=== PATIENT | male | born 1945 | race Caucasian/White ===

== ENCOUNTER 2022-07-31 21:42 | Observation (INO) ==
[2022-07-31] MEDS ORDERED: *HR* HYDROcodone/Acet 5/325 mg TABLET PO PRN (23:47)
[2022-07-31] MEDS ORDERED: Melatonin 3 MG TABLET PO PRN (23:47)
[2022-07-31] MEDS ORDERED: Ondansetron 4 MG/2 ML VIAL IVP PRN (23:47)
[2022-07-31] MEDS ORDERED: Naloxone 0.4 MG/ML INJ IVP PRN (23:47)
[2022-08-01] MEDS: Acetaminophen 325 MG TABLET PO PRN ×3 (01:42→18:02)
[2022-08-01] MEDS: Ipratropium/Albuterol Neb 3 ML IH SCH ×2 (04:15→09:35)
[2022-08-01] MEDS ORDERED: Saline Nasal Spray 44 ML BOTTLE NS PRN (06:04)
[2022-08-01] MEDS ORDERED: Saliva Stimulant 44.3ml BOTTLE PO PRN (06:04)
[2022-08-01] MEDS ORDERED: *HR* Dextrose 50 % in Water (Syg) 50 ML SYRINGE IVP PRN (06:07)
[2022-08-01] MEDS ORDERED: Dextrose Gel 15 GM/37.5 ML TUBE PO PRN ×2 (06:07)
[2022-08-01] MEDS ORDERED: D5% in Water 1,000 ML IVC PRN (06:07)
[2022-08-01 07:32] LABS: Basophils % 0.3 %; Eosinophils # 0.6 K/mcL (0.0-0.6); Eosinophils % 6.7 %; Hematocrit 42.5 % (37.5-50.1); Hemoglobin 13.5 g/dL (12.9-16.9); Immature Granulocytes % 0.2 % (0-4); Lymphocytes # 1.4 K/mcL (0.6-4.6); Lymphocytes % 15.3 %; Mean Corpuscular HGB Conc 31.8 g/dL (31.6-35.5); Mean Corpuscular Hemoglobin 29.7 pg (28.0-33.3); Mean Corpuscular Volume 93.4 fL (83.0-100.0); Mean Platelet Volume 10.7 fL (9.4-12.4); Monocytes # 0.8 K/mcL (0.0-1.3); Monocytes % 8.9 %; Neutrophils # 6.2 K/mcL (1.6-8.9); Platelet Count 212 K/mcL (140-400); Red Blood Count 4.55 M/mcL (4.19-5.50); Red Cell Distribution Width 13.2 % (11.5-14.5); Segmented Neutrophils % 68.6 %
[2022-08-01] MEDS: Insulin LISPRO 300 UNITS/3 ML VIAL SUBQ SCH ×3 (07:46→16:25)
[2022-08-01 07:52] LABS: INR 1.3
[2022-08-01 07:54] LABS: Activated Partial Thrombo Time 30.3 Seconds (26.0-36.0)
[2022-08-01] MEDS: Azithromycin 500 MG in 0.9 % Sodium Chloride 250 ML IVPB SCH (08:00)
[2022-08-01 08:16] LABS: Alanine Aminotransferase 8 Units/L (7-52); Albumin 3.3 g/dL (3.5-5.7); Albumin/Globulin Ratio 1.1 (1.1-2.2); Alkaline Phosphatase 66 Units/L (34-104); Aspartate Amino Transferase 13 Units/L (13-39); BUN/Creatinine Ratio 24 (6-26); Bilirubin,Total 0.4 mg/dL (0.3-1.0); Blood Urea Nitrogen 17 mg/dL (8-23); Calcium 8.9 mg/dL (8.6-10.3); Carbon Dioxide 40 mEq/L (23-29); Chloride 94 mEq/L (98-107); Globulin 2.9 g/dL (2.4-3.5); Glucose 90 mg/dL (70-105); Magnesium 1.8 mg/dL (1.6-2.6); Osmolality,Calculated 291 (280-300); Potassium 3.8 mEq/L (3.5-5.1); Sodium 140 mEq/L (136-145); Total Protein 6.2 g/dL (6.4-8.9)
[2022-08-01] MEDS ORDERED: NON-FORMULARY MEDICATION 1 EACH EACH (Biotin 1 MG Tablet) PO SCH (09:00)
[2022-08-01] MEDS ORDERED: predniSONE 20 MG TABLET PO SCH (09:00)
[2022-08-01] MEDS ORDERED: NON-FORMULARY MEDICATION 1 EACH EACH (Cyanocobalamin (Vitamin B-12) [Vitamin B-12] 100 MCG PO SCH (09:00)
[2022-08-01] MEDS ORDERED: predniSONE 10 MG TABLET PO SCH (09:00)
[2022-08-01] MEDS: Budesonide/Formoterol 160/4.5 1 PUFF INH IH SCH ×2 (09:35→21:12)
[2022-08-01] MEDS: Lactobacillus 1 EACH CAP.SPRINK PO SCH ×2 (10:12→20:48)
[2022-08-01] MEDS: Ascorbic Acid 500 MG TABLET PO SCH (10:12)
[2022-08-01] MEDS: Multivit/Ca/Min/Fe/FA 1 TAB TABLET PO SCH (10:12)
[2022-08-01] MEDS: Artificial Tears SOLN 15 ML BOTTLE BOTH EYES SCH ×2 (10:12→20:56)
[2022-08-01] MEDS: cefTRIAXone 1,000 MG in 0.9 % Sodium Chloride Mini Bag 100 ML IVPB SCH (10:13)
[2022-08-01] MEDS: Chlorhexidine Rinse 15 ML MOUTHWASH MM SCH (10:25)
[2022-08-01] MEDS: Nystatin POWDER 30 GM BOTTLE TP SCH ×2 (10:53→20:55)
[2022-08-01] MEDS: Metoprolol XL (24 HR) Succ 25 MG TAB.ER.24H PO SCH (10:53)
[2022-08-01] MEDS: Gabapentin 100 MG CAPSULE PO SCH ×3 (10:53→20:48)
[2022-08-01] MEDS ORDERED: NON-FORMULARY MEDICATION 1 EACH EACH (Ipratropium/Albuterol Sulfate 120 PUFF Inhaler) IH SCH (12:00)
[2022-08-01] MEDS: hydroCHLOROthiazide 25 MG TABLET PO SCH (20:48)
[2022-08-02] MEDS: *HR* Enoxaparin 40 MG/0.4 ML SYRINGE SQ SCH (05:48)
[2022-08-02] MEDS: Chlorhexidine Rinse 15 ML MOUTHWASH MM SCH ×3 (05:48→19:56)
[2022-08-02] MEDS: Acetaminophen 325 MG TABLET PO PRN ×2 (05:58→17:16)
[2022-08-02] MEDS: Insulin LISPRO 300 UNITS/3 ML VIAL SUBQ SCH ×3 (07:31→16:31)
[2022-08-02] MEDS: Azithromycin 500 MG in 0.9 % Sodium Chloride 250 ML IVPB SCH (07:33)
[2022-08-02] MEDS: Cholecalciferol (D-3) 1,000 UNIT (25MCG) TABLET PO SCH (08:58)
[2022-08-02] MEDS: Metoprolol XL (24 HR) Succ 25 MG TAB.ER.24H PO SCH (08:58)
[2022-08-02] MEDS: Ascorbic Acid 500 MG TABLET PO SCH (08:58)
[2022-08-02] MEDS: Gabapentin 100 MG CAPSULE PO SCH ×3 (08:58→19:54)
[2022-08-02] MEDS: Lactobacillus 1 EACH CAP.SPRINK PO SCH ×2 (08:58→19:54)
[2022-08-02] MEDS: Multivit/Ca/Min/Fe/FA 1 TAB TABLET PO SCH (08:59)
[2022-08-02] MEDS: cefTRIAXone 1,000 MG in 0.9 % Sodium Chloride Mini Bag 100 ML IVPB SCH (09:00)
[2022-08-02] MEDS: Nystatin POWDER 30 GM BOTTLE TP SCH ×2 (09:00→23:57)
[2022-08-02] MEDS: BETA CAROTENE PO SCH (09:11)
[2022-08-02] MEDS: Budesonide/Formoterol 160/4.5 1 PUFF INH IH SCH ×2 (09:43→21:49)
[2022-08-02] MEDS: Artificial Tears SOLN 15 ML BOTTLE BOTH EYES SCH ×2 (13:41→19:54)
[2022-08-02] MEDS: hydroCHLOROthiazide 25 MG TABLET PO SCH (19:54)
[2022-08-02] MEDS: Melatonin 3 MG TABLET PO PRN (23:16)
[2022-08-03] MEDS: *HR* Enoxaparin 40 MG/0.4 ML SYRINGE SQ SCH (06:09)
[2022-08-03] MEDS: Gabapentin 100 MG CAPSULE PO SCH ×3 (08:40→20:44)
[2022-08-03] MEDS: polyethylene glycoL 3350 17 GM POWD.PACK PO SCH (08:40)
[2022-08-03] MEDS: Artificial Tears SOLN 15 ML BOTTLE BOTH EYES SCH ×2 (08:40→20:44)
[2022-08-03] MEDS: Ascorbic Acid 500 MG TABLET PO SCH (08:40)
[2022-08-03] MEDS: Multivit/Ca/Min/Fe/FA 1 TAB TABLET PO SCH (08:40)
[2022-08-03] MEDS: Chlorhexidine Rinse 15 ML MOUTHWASH MM SCH ×2 (08:40→20:44)
[2022-08-03] MEDS: Metoprolol XL (24 HR) Succ 25 MG TAB.ER.24H PO SCH (08:41)
[2022-08-03] MEDS: Cholecalciferol (D-3) 1,000 UNIT (25MCG) TABLET PO SCH (08:41)
[2022-08-03] MEDS: Nystatin POWDER 30 GM BOTTLE TP SCH ×2 (08:41→20:45)
[2022-08-03] MEDS: Lactobacillus 1 EACH CAP.SPRINK PO SCH ×2 (08:41→20:44)
[2022-08-03] MEDS: BETA CAROTENE PO SCH (08:41)
[2022-08-03] MEDS: Insulin LISPRO 300 UNITS/3 ML VIAL SUBQ SCH ×3 (08:42→16:29)
[2022-08-03] MEDS: Budesonide/Formoterol 160/4.5 1 PUFF INH IH SCH ×2 (09:46→21:11)
[2022-08-03] MEDS ORDERED: Sennosides/Docusate Sodium TABLET PO PRN (16:36)
[2022-08-03] MEDS ORDERED: polyethylene glycoL 3350 17 GM POWD.PACK PO ONE (16:37)
[2022-08-03] MEDS: Ipratropium/Albuterol Neb 3 ML IH PRN (18:01)
[2022-08-03] MEDS ORDERED: *HR* LORazepam 0.5 MG TABLET PO ONE (19:33)
[2022-08-03] MEDS: hydroCHLOROthiazide 25 MG TABLET PO SCH (20:44)
[2022-08-03] MEDS: Acetaminophen 325 MG TABLET PO PRN (21:13)
[2022-08-03] MEDS: Melatonin 3 MG TABLET PO PRN (22:58)
[2022-08-04] MEDS: *HR* Enoxaparin 40 MG/0.4 ML SYRINGE SQ SCH (04:23)
[2022-08-04] MEDS: Acetaminophen 325 MG TABLET PO PRN ×3 (04:23→20:26)
[2022-08-04] MEDS: Ipratropium/Albuterol Neb 3 ML IH PRN ×2 (04:57→16:27)
[2022-08-04 07:08] LABS: Basophils % 0.4 %; Eosinophils # 0.6 K/mcL (0.0-0.6); Eosinophils % 7.7 %; Hematocrit 38.8 % (37.5-50.1); Hemoglobin 12.2 g/dL (12.9-16.9); Immature Granulocytes % 0.4 % (0-4); Lymphocytes # 1.2 K/mcL (0.6-4.6); Lymphocytes % 13.9 %; Mean Corpuscular HGB Conc 31.4 g/dL (31.6-35.5); Mean Corpuscular Hemoglobin 29.6 pg (28.0-33.3); Mean Corpuscular Volume 94.2 fL (83.0-100.0); Mean Platelet Volume 10.8 fL (9.4-12.4); Monocytes # 0.8 K/mcL (0.0-1.3); Monocytes % 9.5 %; Neutrophils # 5.7 K/mcL (1.6-8.9); Platelet Count 191 K/mcL (140-400); Red Blood Count 4.12 M/mcL (4.19-5.50); Segmented Neutrophils % 68.1 %; White Blood Count 8.3 K/mcL (4.3-11.1)
[2022-08-04] MEDS: Insulin LISPRO 300 UNITS/3 ML VIAL SUBQ SCH ×3 (07:24→16:42)
[2022-08-04 07:32] LABS: BUN/Creatinine Ratio 21 (6-26); Blood Urea Nitrogen 15 mg/dL (8-23); Calcium 8.6 mg/dL (8.6-10.3); Carbon Dioxide 38 mEq/L (23-29); Chloride 97 mEq/L (98-107); Glucose 142 mg/dL (70-105); Osmolality,Calculated 293 (280-300); Potassium 3.5 mEq/L (3.5-5.1); Sodium 140 mEq/L (136-145)
[2022-08-04] MEDS: polyethylene glycoL 3350 17 GM POWD.PACK PO SCH (07:44)
[2022-08-04] MEDS: Multivit/Ca/Min/Fe/FA 1 TAB TABLET PO SCH (07:44)
[2022-08-04] MEDS: Lactobacillus 1 EACH CAP.SPRINK PO SCH ×2 (07:45→20:26)
[2022-08-04] MEDS: Gabapentin 100 MG CAPSULE PO SCH ×3 (07:45→20:26)
[2022-08-04] MEDS: Cholecalciferol (D-3) 1,000 UNIT (25MCG) TABLET PO SCH (07:45)
[2022-08-04] MEDS: Artificial Tears SOLN 15 ML BOTTLE BOTH EYES SCH ×2 (07:45→20:25)
[2022-08-04] MEDS: Nystatin POWDER 30 GM BOTTLE TP SCH ×2 (07:45→20:27)
[2022-08-04] MEDS: BETA CAROTENE PO SCH (07:45)
[2022-08-04] MEDS: Ascorbic Acid 500 MG TABLET PO SCH (07:45)
[2022-08-04] MEDS: Metoprolol XL (24 HR) Succ 25 MG TAB.ER.24H PO SCH (07:45)
[2022-08-04] MEDS: Chlorhexidine Rinse 15 ML MOUTHWASH MM SCH ×2 (07:45→20:26)
[2022-08-04] MEDS: Budesonide/Formoterol 160/4.5 1 PUFF INH IH SCH ×2 (09:33→21:11)
[2022-08-04] MEDS ORDERED: Milk and Molasses Enema 200 ML RC ONE (11:22)
[2022-08-04] MEDS: MOM Conc 10 ML UD.LIQ PO SCH (11:27)
[2022-08-04] MEDS: hydroCHLOROthiazide 25 MG TABLET PO SCH (20:26)
[2022-08-04] MEDS: Melatonin 3 MG TABLET PO PRN (23:18)
[2022-08-04] MEDS: *HR* LORazepam 0.5 MG TABLET PO PRN (23:18)
[2022-08-05] MEDS: *HR* Enoxaparin 40 MG/0.4 ML SYRINGE SQ SCH (06:52)
[2022-08-05] MEDS: Insulin LISPRO 300 UNITS/3 ML VIAL SUBQ SCH ×3 (07:42→16:21)
[2022-08-05] MEDS: MOM Conc 10 ML UD.LIQ PO SCH (09:18)
[2022-08-05] MEDS: Cholecalciferol (D-3) 1,000 UNIT (25MCG) TABLET PO SCH (09:18)
[2022-08-05] MEDS: Multivit/Ca/Min/Fe/FA 1 TAB TABLET PO SCH (09:18)
[2022-08-05] MEDS: Lactobacillus 1 EACH CAP.SPRINK PO SCH ×2 (09:18→20:24)
[2022-08-05] MEDS: Artificial Tears SOLN 15 ML BOTTLE BOTH EYES SCH ×2 (09:18→20:25)
[2022-08-05] MEDS: Ascorbic Acid 500 MG TABLET PO SCH (09:18)
[2022-08-05] MEDS: Chlorhexidine Rinse 15 ML MOUTHWASH MM SCH ×2 (09:18→20:25)
[2022-08-05] MEDS: Metoprolol XL (24 HR) Succ 25 MG TAB.ER.24H PO SCH (09:18)
[2022-08-05] MEDS: Gabapentin 100 MG CAPSULE PO SCH ×3 (09:18→20:24)
[2022-08-05] MEDS: polyethylene glycoL 3350 17 GM POWD.PACK PO SCH (09:19)
[2022-08-05] MEDS: Nystatin POWDER 30 GM BOTTLE TP SCH ×2 (09:19→20:35)
[2022-08-05] MEDS: BETA CAROTENE PO SCH (09:19)
[2022-08-05] MEDS: Budesonide/Formoterol 160/4.5 1 PUFF INH IH SCH ×2 (09:27→21:52)
[2022-08-05] MEDS: Acetaminophen 325 MG TABLET PO PRN ×2 (09:28→20:24)
[2022-08-05] MEDS: Ipratropium/Albuterol Neb 3 ML IH PRN (16:04)
[2022-08-05] MEDS: hydroCHLOROthiazide 25 MG TABLET PO SCH (20:24)
[2022-08-05] MEDS: *HR* LORazepam 0.5 MG TABLET PO PRN (23:23)
[2022-08-05] MEDS: Melatonin 3 MG TABLET PO PRN (23:25)
[2022-08-06] MEDS: *HR* Enoxaparin 40 MG/0.4 ML SYRINGE SQ SCH (06:26)
[2022-08-06] MEDS: Insulin LISPRO 300 UNITS/3 ML VIAL SUBQ SCH ×3 (07:07→16:19)
[2022-08-06] MEDS: Artificial Tears SOLN 15 ML BOTTLE BOTH EYES SCH ×2 (07:07→16:23)
[2022-08-06] MEDS: MOM Conc 10 ML UD.LIQ PO SCH (08:38)
[2022-08-06] MEDS: Multivit/Ca/Min/Fe/FA 1 TAB TABLET PO SCH (08:38)
[2022-08-06] MEDS: Metoprolol XL (24 HR) Succ 25 MG TAB.ER.24H PO SCH (08:38)
[2022-08-06] MEDS: Gabapentin 100 MG CAPSULE PO SCH ×2 (08:38→15:08)
[2022-08-06] MEDS: Lactobacillus 1 EACH CAP.SPRINK PO SCH (08:38)
[2022-08-06] MEDS: Ascorbic Acid 500 MG TABLET PO SCH (08:38)
[2022-08-06] MEDS: Chlorhexidine Rinse 15 ML MOUTHWASH MM SCH (08:38)
[2022-08-06] MEDS: Cholecalciferol (D-3) 1,000 UNIT (25MCG) TABLET PO SCH (08:38)
[2022-08-06] MEDS: polyethylene glycoL 3350 17 GM POWD.PACK PO SCH (08:39)
[2022-08-06] MEDS: BETA CAROTENE PO SCH (08:39)
[2022-08-06] MEDS: Nystatin POWDER 30 GM BOTTLE TP SCH (08:39)
[2022-08-06] MEDS: Acetaminophen 325 MG TABLET PO PRN ×2 (08:41→15:07)
[2022-08-06] MEDS: Budesonide/Formoterol 160/4.5 1 PUFF INH IH SCH (09:41)
[2022-08-06 14:18] VITALS: BP 119/64; PULSE 66; RESP 17; TEMP 98; O2SAT 96
== END 2022-08-06 18:01 | disposition other institution (70) ==
LOC: INPPIK → SUATTDRO 23:39
PROVIDERS: ADMIT Internal Medicine; ATTEND Nurse Practitioner

== ENCOUNTER 2022-08-04 12:20 | Inpatient (IN) ==
[2022-08-06] MEDS ORDERED: Saliva Stimulant 44.3ml BOTTLE PO PRN (17:25)
[2022-08-06] MEDS ORDERED: Ondansetron ODT 4 MG TAB.RAPDIS SL PRN (17:32)
[2022-08-06] MEDS ORDERED: D5% in Water 1,000 ML IVC PRN (17:34)
[2022-08-06] MEDS ORDERED: *HR* Dextrose 50 % in Water (Syg) 50 ML SYRINGE IVP PRN (17:34)
[2022-08-06] MEDS ORDERED: Dextrose Gel 15 GM/37.5 ML TUBE PO PRN ×2 (17:34)
[2022-08-06] MEDS ORDERED: Sennosides/Docusate Sodium TABLET PO PRN (21:00)
[2022-08-06] MEDS: Artificial Tears SOLN 15 ML BOTTLE BOTH EYES SCH (21:47)
[2022-08-06] MEDS: Acetaminophen 325 MG TABLET PO PRN (21:47)
[2022-08-06] MEDS: hydroCHLOROthiazide 25 MG TABLET PO SCH (21:47)
[2022-08-06] MEDS: Gabapentin 100 MG CAPSULE PO SCH (21:47)
[2022-08-06] MEDS: Nystatin POWDER 30 GM BOTTLE TP SCH (21:48)
[2022-08-06] MEDS: Insulin LISPRO 300 UNITS/3 ML VIAL SUBQ SCH (21:48)
[2022-08-06] MEDS: Budesonide/Formoterol 160/4.5 1 PUFF INH IH SCH (22:15)
[2022-08-06] MEDS: *HR* LORazepam 0.5 MG TABLET PO PRN (23:31)
[2022-08-06] MEDS: Melatonin 3 MG TABLET PO PRN (23:31)
[2022-08-07] MEDS: *HR* Enoxaparin 40 MG/0.4 ML SYRINGE SQ SCH (06:33)
[2022-08-07] MEDS: Insulin LISPRO 300 UNITS/3 ML VIAL SUBQ SCH ×4 (07:13→19:51)
[2022-08-07 08:12] LABS: Basophils % 0.4 %; Eosinophils # 0.7 K/mcL (0.0-0.6); Eosinophils % 7.8 %; Hematocrit 39.1 % (37.5-50.1); Hemoglobin 12.2 g/dL (12.9-16.9); Immature Granulocytes % 0.5 % (0-4); Lymphocytes # 1.4 K/mcL (0.6-4.6); Lymphocytes % 16.2 %; Mean Corpuscular HGB Conc 31.2 g/dL (31.6-35.5); Mean Corpuscular Hemoglobin 29.8 pg (28.0-33.3); Mean Corpuscular Volume 95.4 fL (83.0-100.0); Mean Platelet Volume 11.4 fL (9.4-12.4); Monocytes # 0.8 K/mcL (0.0-1.3); Monocytes % 9.6 %; Neutrophils # 5.5 K/mcL (1.6-8.9); Platelet Count 182 K/mcL (140-400); Red Cell Distribution Width 13.5 % (11.5-14.5); Segmented Neutrophils % 65.5 %; White Blood Count 8.3 K/mcL (4.3-11.1)
[2022-08-07] MEDS: Gabapentin 100 MG CAPSULE PO SCH ×3 (08:16→19:49)
[2022-08-07] MEDS: Cholecalciferol (D-3) 1,000 UNIT (25MCG) TABLET PO SCH (08:17)
[2022-08-07] MEDS: Nystatin POWDER 30 GM BOTTLE TP SCH ×2 (08:17→19:51)
[2022-08-07] MEDS: Metoprolol XL (24 HR) Succ 25 MG TAB.ER.24H PO SCH (08:17)
[2022-08-07] MEDS: polyethylene glycoL 3350 17 GM POWD.PACK PO SCH (08:17)
[2022-08-07] MEDS: GlipiZIDE 5 MG TABLET PO SCH (08:17)
[2022-08-07] MEDS: Ascorbic Acid 500 MG TABLET PO SCH (08:17)
[2022-08-07] MEDS: Artificial Tears SOLN 15 ML BOTTLE BOTH EYES SCH ×2 (08:24→20:00)
[2022-08-07] MEDS: VIT B PO SCH (08:24)
[2022-08-07 08:34] LABS: BUN/Creatinine Ratio 26 (6-26); Blood Urea Nitrogen 16 mg/dL (8-23); Calcium 8.7 mg/dL (8.6-10.3); Carbon Dioxide 37 mEq/L (23-29); Chloride 97 mEq/L (98-107); Glucose 91 mg/dL (70-105); Osmolality,Calculated 289 (280-300); Sodium 139 mEq/L (136-145)
[2022-08-07] MEDS: Budesonide/Formoterol 160/4.5 1 PUFF INH IH SCH ×2 (09:16→22:12)
[2022-08-07] MEDS: Ipratropium/Albuterol Neb 3 ML IH PRN (17:42)
[2022-08-07] MEDS ORDERED: Bisacodyl 10 MG RECTAL SUPPOSITORY RC PRN (17:45)
[2022-08-07] MEDS: Acetaminophen 325 MG TABLET PO PRN (19:48)
[2022-08-07] MEDS: Melatonin 3 MG TABLET PO PRN (19:49)
[2022-08-07] MEDS: hydroCHLOROthiazide 25 MG TABLET PO SCH (19:49)
[2022-08-07] MEDS: *HR* LORazepam 0.5 MG TABLET PO PRN (19:49)
[2022-08-08] MEDS: *HR* Enoxaparin 40 MG/0.4 ML SYRINGE SQ SCH (05:21)
[2022-08-08] MEDS: Budesonide/Formoterol 160/4.5 1 PUFF INH IH SCH ×2 (07:49→21:01)
[2022-08-08] MEDS: GlipiZIDE 5 MG TABLET PO SCH (08:39)
[2022-08-08] MEDS: Metoprolol XL (24 HR) Succ 25 MG TAB.ER.24H PO SCH (08:39)
[2022-08-08] MEDS: Acetaminophen 325 MG TABLET PO PRN ×2 (08:39→20:41)
[2022-08-08] MEDS: Ascorbic Acid 500 MG TABLET PO SCH (08:40)
[2022-08-08] MEDS: polyethylene glycoL 3350 17 GM POWD.PACK PO SCH (08:40)
[2022-08-08] MEDS: Cholecalciferol (D-3) 1,000 UNIT (25MCG) TABLET PO SCH (08:40)
[2022-08-08] MEDS: Insulin LISPRO 300 UNITS/3 ML VIAL SUBQ SCH ×4 (08:40→20:42)
[2022-08-08] MEDS: Gabapentin 100 MG CAPSULE PO SCH ×3 (08:40→20:40)
[2022-08-08] MEDS: Artificial Tears SOLN 15 ML BOTTLE BOTH EYES SCH ×2 (08:40→20:43)
[2022-08-08] MEDS: VIT B PO SCH (08:41)
[2022-08-08] MEDS: Nystatin POWDER 30 GM BOTTLE TP SCH ×2 (08:41→20:41)
[2022-08-08] MEDS: Ipratropium/Albuterol Neb 3 ML IH PRN ×2 (09:20→15:44)
[2022-08-08] MEDS: hydroCHLOROthiazide 25 MG TABLET PO SCH (20:41)
[2022-08-08] MEDS: *HR* LORazepam 0.5 MG TABLET PO PRN (20:41)
[2022-08-08] MEDS: Melatonin 3 MG TABLET PO PRN (23:07)
[2022-08-09] MEDS: *HR* Enoxaparin 40 MG/0.4 ML SYRINGE SQ SCH (05:50)
[2022-08-09] MEDS: Acetaminophen 325 MG TABLET PO PRN ×2 (06:49→19:45)
[2022-08-09] MEDS: GlipiZIDE 5 MG TABLET PO SCH (06:50)
[2022-08-09] MEDS: Insulin LISPRO 300 UNITS/3 ML VIAL SUBQ SCH ×4 (07:22→19:47)
[2022-08-09] MEDS: Gabapentin 100 MG CAPSULE PO SCH ×3 (08:52→19:45)
[2022-08-09] MEDS: Cholecalciferol (D-3) 1,000 UNIT (25MCG) TABLET PO SCH (08:52)
[2022-08-09] MEDS: *HR* LORazepam 0.5 MG TABLET PO PRN ×2 (08:53→19:46)
[2022-08-09] MEDS: Metoprolol XL (24 HR) Succ 25 MG TAB.ER.24H PO SCH (08:53)
[2022-08-09] MEDS: VIT B PO SCH (08:53)
[2022-08-09] MEDS: Ascorbic Acid 500 MG TABLET PO SCH (08:53)
[2022-08-09] MEDS: polyethylene glycoL 3350 17 GM POWD.PACK PO SCH (08:53)
[2022-08-09] MEDS: Nystatin POWDER 30 GM BOTTLE TP SCH ×2 (08:54→19:48)
[2022-08-09] MEDS: Artificial Tears SOLN 15 ML BOTTLE BOTH EYES SCH ×2 (08:54→19:46)
[2022-08-09] MEDS: Budesonide/Formoterol 160/4.5 1 PUFF INH IH SCH ×2 (10:18→21:05)
[2022-08-09] MEDS: hydroCHLOROthiazide 25 MG TABLET PO SCH (19:48)
[2022-08-09] MEDS: Ipratropium/Albuterol Neb 3 ML IH PRN (21:04)
[2022-08-10] MEDS: Melatonin 3 MG TABLET PO PRN ×2 (00:10→23:12)
[2022-08-10] MEDS: *HR* Enoxaparin 40 MG/0.4 ML SYRINGE SQ SCH (05:32)
[2022-08-10] MEDS: Budesonide/Formoterol 160/4.5 1 PUFF INH IH SCH ×2 (08:50→22:34)
[2022-08-10] MEDS: Ascorbic Acid 500 MG TABLET PO SCH (09:16)
[2022-08-10] MEDS: Cholecalciferol (D-3) 1,000 UNIT (25MCG) TABLET PO SCH (09:16)
[2022-08-10] MEDS: Gabapentin 100 MG CAPSULE PO SCH ×3 (09:16→21:02)
[2022-08-10] MEDS: GlipiZIDE 5 MG TABLET PO SCH (09:16)
[2022-08-10] MEDS: Metoprolol XL (24 HR) Succ 25 MG TAB.ER.24H PO SCH (09:17)
[2022-08-10] MEDS: Nystatin POWDER 30 GM BOTTLE TP SCH ×2 (09:17→21:02)
[2022-08-10] MEDS: polyethylene glycoL 3350 17 GM POWD.PACK PO SCH (09:17)
[2022-08-10] MEDS: Artificial Tears SOLN 15 ML BOTTLE BOTH EYES SCH ×2 (09:17→21:01)
[2022-08-10] MEDS: VIT B PO SCH (09:18)
[2022-08-10] MEDS: Insulin LISPRO 300 UNITS/3 ML VIAL SUBQ SCH ×4 (09:20→21:01)
[2022-08-10] MEDS: Acetaminophen 325 MG TABLET PO PRN ×2 (09:31→17:47)
[2022-08-10] MEDS: Ipratropium/Albuterol Neb 3 ML IH PRN ×2 (18:26→22:36)
[2022-08-10] MEDS: hydroCHLOROthiazide 25 MG TABLET PO SCH (21:02)
[2022-08-11] MEDS: Acetaminophen 325 MG TABLET PO PRN ×2 (05:55→12:12)
[2022-08-11] MEDS: *HR* Enoxaparin 40 MG/0.4 ML SYRINGE SQ SCH (05:55)
[2022-08-11] MEDS: Budesonide/Formoterol 160/4.5 1 PUFF INH IH SCH ×2 (09:27→21:46)
[2022-08-11] MEDS: Insulin LISPRO 300 UNITS/3 ML VIAL SUBQ SCH ×4 (10:40→22:07)
[2022-08-11] MEDS: Cholecalciferol (D-3) 1,000 UNIT (25MCG) TABLET PO SCH (11:03)
[2022-08-11] MEDS: Nystatin POWDER 30 GM BOTTLE TP SCH ×2 (11:03→23:07)
[2022-08-11] MEDS: GlipiZIDE 5 MG TABLET PO SCH (11:03)
[2022-08-11] MEDS: Gabapentin 100 MG CAPSULE PO SCH ×3 (11:03→22:06)
[2022-08-11] MEDS: Metoprolol XL (24 HR) Succ 25 MG TAB.ER.24H PO SCH (11:03)
[2022-08-11] MEDS: polyethylene glycoL 3350 17 GM POWD.PACK PO SCH (11:04)
[2022-08-11] MEDS: Artificial Tears SOLN 15 ML BOTTLE BOTH EYES SCH ×2 (11:04→22:05)
[2022-08-11] MEDS: Ascorbic Acid 500 MG TABLET PO SCH (11:04)
[2022-08-11] MEDS: VIT B PO SCH (11:05)
[2022-08-11] MEDS: Ipratropium/Albuterol Neb 3 ML IH PRN ×2 (17:24→21:46)
[2022-08-11] MEDS: Melatonin 3 MG TABLET PO PRN (22:06)
[2022-08-11] MEDS: hydroCHLOROthiazide 25 MG TABLET PO SCH (22:06)
[2022-08-12] MEDS: *HR* Enoxaparin 40 MG/0.4 ML SYRINGE SQ SCH (05:26)
[2022-08-12] MEDS: Acetaminophen 325 MG TABLET PO PRN ×2 (05:30→18:01)
[2022-08-12] MEDS: Insulin LISPRO 300 UNITS/3 ML VIAL SUBQ SCH ×4 (07:10→20:46)
[2022-08-12] MEDS: Budesonide/Formoterol 160/4.5 1 PUFF INH IH SCH ×2 (08:09→21:07)
[2022-08-12] MEDS: polyethylene glycoL 3350 17 GM POWD.PACK PO SCH (09:19)
[2022-08-12] MEDS: Metoprolol XL (24 HR) Succ 25 MG TAB.ER.24H PO SCH (09:19)
[2022-08-12] MEDS: Gabapentin 100 MG CAPSULE PO SCH ×3 (09:20→20:46)
[2022-08-12] MEDS: GlipiZIDE 5 MG TABLET PO SCH (09:20)
[2022-08-12] MEDS: Cholecalciferol (D-3) 1,000 UNIT (25MCG) TABLET PO SCH (09:20)
[2022-08-12] MEDS: Artificial Tears SOLN 15 ML BOTTLE BOTH EYES SCH ×2 (09:20→20:46)
[2022-08-12] MEDS: Nystatin POWDER 30 GM BOTTLE TP SCH ×2 (09:20→20:46)
[2022-08-12] MEDS: Ascorbic Acid 500 MG TABLET PO SCH (09:20)
[2022-08-12] MEDS: VIT B PO SCH (09:21)
[2022-08-12] MEDS: Ipratropium/Albuterol Neb 3 ML IH PRN ×2 (14:14→21:06)
[2022-08-12 19:17] LABS: Bilirubin,Urine Negative (Negative); Blood,Urine Small (Negative); Color,Urine Yellow (Yellow); Glucose,Urine (UA) Normal (Normal); Ketones,Urine Negative (Negative); Leukocyte Esterase,Urine Trace (Negative); Nitrite,Urine Negative (Negative); PH,Urine 7.5 pH Units (5.0-8.0); Protein,Urine >=300 mg/dL (Neg-Trace); Urobilinogen,Urine Normal (Normal)
[2022-08-12 19:24] LABS: Clarity,Urine Slightly Cloudy (Clear)
[2022-08-12 19:25] LABS: Bacteria,Urine Few per hpf (None-Few)
[2022-08-12] MEDS: hydroCHLOROthiazide 25 MG TABLET PO SCH (20:45)
[2022-08-12] MEDS: Melatonin 3 MG TABLET PO PRN (22:45)
[2022-08-13] MEDS: Acetaminophen 325 MG TABLET PO PRN ×2 (05:35→17:14)
[2022-08-13] MEDS: *HR* Enoxaparin 40 MG/0.4 ML SYRINGE SQ SCH (05:35)
[2022-08-13 05:39] LABS: Basophils % 0.3 %; Eosinophils # 0.5 K/mcL (0.0-0.6); Eosinophils % 5.1 %; Hematocrit 38.6 % (37.5-50.1); Hemoglobin 12.1 g/dL (12.9-16.9); Immature Granulocytes % 0.4 % (0-4); Lymphocytes # 1.3 K/mcL (0.6-4.6); Lymphocytes % 12.6 %; Mean Corpuscular HGB Conc 31.3 g/dL (31.6-35.5); Mean Corpuscular Hemoglobin 29.4 pg (28.0-33.3); Mean Corpuscular Volume 93.9 fL (83.0-100.0); Mean Platelet Volume 11.1 fL (9.4-12.4); Monocytes % 10.3 %; Neutrophils # 7.1 K/mcL (1.6-8.9); Platelet Count 189 K/mcL (140-400); Red Blood Count 4.11 M/mcL (4.19-5.50); Red Cell Distribution Width 13.8 % (11.5-14.5); Segmented Neutrophils % 71.3 %; White Blood Count 9.9 K/mcL (4.3-11.1)
[2022-08-13 06:02] LABS: Alanine Aminotransferase 15 Units/L (7-52); Albumin 3.3 g/dL (3.5-5.7); Albumin/Globulin Ratio 1.1 (1.1-2.2); Alkaline Phosphatase 58 Units/L (34-104); Aspartate Amino Transferase 15 Units/L (13-39); BUN/Creatinine Ratio 30 (6-26); Bilirubin,Total 0.3 mg/dL (0.3-1.0); Blood Urea Nitrogen 21 mg/dL (8-23); Carbon Dioxide 36 mEq/L (23-29); Chloride 97 mEq/L (98-107); Globulin 2.9 g/dL (2.4-3.5); Glucose 96 mg/dL (70-105); Osmolality,Calculated 293 (280-300); Potassium 4.1 mEq/L (3.5-5.1); Sodium 140 mEq/L (136-145); Total Protein 6.2 g/dL (6.4-8.9)
[2022-08-13] MEDS: Insulin LISPRO 300 UNITS/3 ML VIAL SUBQ SCH ×4 (07:09→21:56)
[2022-08-13] MEDS: Ascorbic Acid 500 MG TABLET PO SCH (08:09)
[2022-08-13] MEDS: polyethylene glycoL 3350 17 GM POWD.PACK PO SCH (08:10)
[2022-08-13] MEDS: Cholecalciferol (D-3) 1,000 UNIT (25MCG) TABLET PO SCH (08:10)
[2022-08-13] MEDS: GlipiZIDE 5 MG TABLET PO SCH (08:10)
[2022-08-13] MEDS: Metoprolol XL (24 HR) Succ 25 MG TAB.ER.24H PO SCH (08:10)
[2022-08-13] MEDS: *HR* LORazepam 0.5 MG TABLET PO PRN (08:10)
[2022-08-13] MEDS: Gabapentin 100 MG CAPSULE PO SCH ×3 (08:10→21:58)
[2022-08-13] MEDS: VIT B PO SCH (08:11)
[2022-08-13] MEDS: Artificial Tears SOLN 15 ML BOTTLE BOTH EYES SCH ×2 (08:11→21:57)
[2022-08-13] MEDS: Nystatin POWDER 30 GM BOTTLE TP SCH ×2 (08:11→21:58)
[2022-08-13] MEDS: Budesonide/Formoterol 160/4.5 1 PUFF INH IH SCH ×2 (10:35→21:13)
[2022-08-13] MEDS: Ipratropium/Albuterol Neb 3 ML IH PRN ×3 (10:35→21:13)
[2022-08-13] MEDS: hydroCHLOROthiazide 25 MG TABLET PO SCH (21:57)
[2022-08-14] MEDS: Acetaminophen 325 MG TABLET PO PRN ×2 (00:12→09:31)
[2022-08-14] MEDS: *HR* Enoxaparin 40 MG/0.4 ML SYRINGE SQ SCH (05:14)
[2022-08-14] MEDS: GlipiZIDE 5 MG TABLET PO SCH (08:41)
[2022-08-14] MEDS: Ascorbic Acid 500 MG TABLET PO SCH (08:41)
[2022-08-14] MEDS: Metoprolol XL (24 HR) Succ 25 MG TAB.ER.24H PO SCH (08:42)
[2022-08-14] MEDS: Gabapentin 100 MG CAPSULE PO SCH ×3 (08:42→20:05)
[2022-08-14] MEDS: Cholecalciferol (D-3) 1,000 UNIT (25MCG) TABLET PO SCH (08:42)
[2022-08-14] MEDS: Insulin LISPRO 300 UNITS/3 ML VIAL SUBQ SCH ×4 (08:43→20:06)
[2022-08-14] MEDS: polyethylene glycoL 3350 17 GM POWD.PACK PO SCH (08:43)
[2022-08-14] MEDS: Nystatin POWDER 30 GM BOTTLE TP SCH ×2 (08:44→20:07)
[2022-08-14] MEDS: Artificial Tears SOLN 15 ML BOTTLE BOTH EYES SCH ×2 (08:44→20:07)
[2022-08-14] MEDS: VIT B PO SCH (08:45)
[2022-08-14] MEDS: Ipratropium/Albuterol Neb 3 ML IH PRN ×2 (09:34→15:26)
[2022-08-14] MEDS: Budesonide/Formoterol 160/4.5 1 PUFF INH IH SCH ×2 (09:34→21:43)
[2022-08-14] MEDS: *HR* LORazepam 0.5 MG TABLET PO PRN (20:05)
[2022-08-14] MEDS: hydroCHLOROthiazide 25 MG TABLET PO SCH (20:05)
[2022-08-14] MEDS: Melatonin 3 MG TABLET PO PRN (22:36)
[2022-08-15] MEDS: *HR* Enoxaparin 40 MG/0.4 ML SYRINGE SQ SCH (04:40)
[2022-08-15] MEDS: polyethylene glycoL 3350 17 GM POWD.PACK PO SCH (08:11)
[2022-08-15] MEDS: GlipiZIDE 5 MG TABLET PO SCH (08:14)
[2022-08-15] MEDS: Ascorbic Acid 500 MG TABLET PO SCH (08:14)
[2022-08-15] MEDS: Gabapentin 100 MG CAPSULE PO SCH ×3 (08:14→20:27)
[2022-08-15] MEDS: Cholecalciferol (D-3) 1,000 UNIT (25MCG) TABLET PO SCH (08:14)
[2022-08-15] MEDS: Metoprolol XL (24 HR) Succ 25 MG TAB.ER.24H PO SCH (08:15)
[2022-08-15] MEDS: VIT B PO SCH (08:15)
[2022-08-15] MEDS: Nystatin POWDER 30 GM BOTTLE TP SCH ×2 (08:15→20:25)
[2022-08-15] MEDS: Insulin LISPRO 300 UNITS/3 ML VIAL SUBQ SCH ×4 (08:16→20:05)
[2022-08-15] MEDS: Artificial Tears SOLN 15 ML BOTTLE BOTH EYES SCH ×2 (08:16→20:25)
[2022-08-15] MEDS: *HR* LORazepam 0.5 MG TABLET PO PRN (08:18)
[2022-08-15] MEDS: Budesonide/Formoterol 160/4.5 1 PUFF INH IH SCH ×2 (09:14→21:41)
[2022-08-15] MEDS: Ipratropium/Albuterol Neb 3 ML IH PRN ×2 (15:13→21:41)
[2022-08-15] MEDS: hydroCHLOROthiazide 25 MG TABLET PO SCH (20:27)
[2022-08-15] MEDS: Acetaminophen 325 MG TABLET PO PRN (20:30)
[2022-08-15] MEDS: Melatonin 3 MG TABLET PO PRN (22:33)
[2022-08-16] MEDS: Acetaminophen 325 MG TABLET PO PRN ×2 (04:51→20:31)
[2022-08-16] MEDS: *HR* Enoxaparin 40 MG/0.4 ML SYRINGE SQ SCH (04:52)
[2022-08-16] MEDS: Insulin LISPRO 300 UNITS/3 ML VIAL SUBQ SCH ×4 (08:18→20:09)
[2022-08-16] MEDS: Budesonide/Formoterol 160/4.5 1 PUFF INH IH SCH ×2 (08:59→21:42)
[2022-08-16] MEDS: Gabapentin 100 MG CAPSULE PO SCH ×3 (10:10→20:30)
[2022-08-16] MEDS: Cholecalciferol (D-3) 1,000 UNIT (25MCG) TABLET PO SCH (10:10)
[2022-08-16] MEDS: Ascorbic Acid 500 MG TABLET PO SCH (10:11)
[2022-08-16] MEDS: Metoprolol XL (24 HR) Succ 25 MG TAB.ER.24H PO SCH (10:11)
[2022-08-16] MEDS: GlipiZIDE 5 MG TABLET PO SCH (10:12)
[2022-08-16] MEDS: polyethylene glycoL 3350 17 GM POWD.PACK PO SCH (10:13)
[2022-08-16] MEDS: Nystatin POWDER 30 GM BOTTLE TP SCH ×2 (10:15→20:32)
[2022-08-16] MEDS: VIT B PO SCH (10:16)
[2022-08-16] MEDS: Artificial Tears SOLN 15 ML BOTTLE BOTH EYES SCH ×2 (10:16→20:31)
[2022-08-16] MEDS: Ipratropium/Albuterol Neb 3 ML IH PRN ×2 (15:57→21:42)
[2022-08-16] MEDS: *HR* LORazepam 0.5 MG TABLET PO PRN (20:30)
[2022-08-16] MEDS: hydroCHLOROthiazide 25 MG TABLET PO SCH (20:30)
[2022-08-16] MEDS: Melatonin 3 MG TABLET PO PRN (22:42)
[2022-08-17] MEDS: Acetaminophen 325 MG TABLET PO PRN ×2 (04:11→19:41)
[2022-08-17] MEDS: *HR* Enoxaparin 40 MG/0.4 ML SYRINGE SQ SCH (04:12)
[2022-08-17] MEDS: Insulin LISPRO 300 UNITS/3 ML VIAL SUBQ SCH ×4 (07:55→19:43)
[2022-08-17] MEDS: Ipratropium/Albuterol Neb 3 ML IH PRN (09:12)
[2022-08-17] MEDS: Budesonide/Formoterol 160/4.5 1 PUFF INH IH SCH ×2 (09:12→20:26)
[2022-08-17] MEDS: Metoprolol XL (24 HR) Succ 25 MG TAB.ER.24H PO SCH (10:16)
[2022-08-17] MEDS: Gabapentin 100 MG CAPSULE PO SCH ×3 (10:16→19:42)
[2022-08-17] MEDS: Ascorbic Acid 500 MG TABLET PO SCH (10:17)
[2022-08-17] MEDS: GlipiZIDE 5 MG TABLET PO SCH (10:17)
[2022-08-17] MEDS: Cholecalciferol (D-3) 1,000 UNIT (25MCG) TABLET PO SCH (10:17)
[2022-08-17] MEDS: VIT B PO SCH (10:18)
[2022-08-17] MEDS: polyethylene glycoL 3350 17 GM POWD.PACK PO SCH (10:19)
[2022-08-17] MEDS: Nystatin POWDER 30 GM BOTTLE TP SCH ×2 (10:19→19:43)
[2022-08-17] MEDS: Artificial Tears SOLN 15 ML BOTTLE BOTH EYES SCH ×2 (10:19→19:43)
[2022-08-17 18:41] VITALS: BP 160/57; PULSE 70; TEMP 97.9; O2SAT 94
[2022-08-17] MEDS: hydroCHLOROthiazide 25 MG TABLET PO SCH (19:42)
[2022-08-17] MEDS: *HR* LORazepam 0.5 MG TABLET PO PRN (19:42)
[2022-08-17 20:28] VITALS: RESP 16
== END 2022-08-17 23:59 | disposition other institution (70) | DRG 641 ==
LOC: SUATTDRO 08-06 18:02 → INPPIK 08-06 18:02
PROVIDERS: ADMIT Internal Medicine; ATTEND Family Medicine